=== PATIENT | female | born 1980 | race Caucasian/White ===

== ENCOUNTER 2017-03-19 10:45 | Emergency (ER) | payer SELFPAY ==
[~2017-03-19] VITALS: Ht 170.2 cm; Wt 163.0 kg
[~2017-03-19 10:45] MED LIST: PROZ20CA11 PO; TRAZ100 PO
[2017-03-19 10:51] VITALS: BP 152/98; PULSE 100; RESP 15; TEMP 97.6; O2SAT 97
[2017-03-19 11:38] LABS: BLOOD, URINE TRACE (NEG); GLUCOSE,URINE 1000 OR GREATER mg/dL (NEG); KETONE, URINE NEG (NEG); NITRITE,URINE NEG (NEG); PH, URINE 5.5 (5.0-8.5)
[2017-03-19 11:43] LABS: BACTERIA, URINE FEW /hpf; COMMENT (UR) CULTURE INDICATED; CULTURE IF INDICATED CULTURE INDICATED; METHOD OF COLLECTION CLEAN CATCH; SQUAMOUS EPITHELIAL CELL URINE > 8 /hpf (0-5); URINE COLOR YELLOW (YELLW/STRAW); WBC, URINE 15-19 /hpf (0-5)
--- NOTE | 2017-03-19 11:45 | PD ---
HPI Chief Complaint: Complaint Time Seen by Provider: 11:28 Travel History International Travel<30 days: No Contact w/Intl Traveler<30days: No Traveled to known affect area: No History of Present Illness HPI Patient is a 37-year-old female who is a type II diabetic, presents to emergency room with complaints of urinary urgency, frequency and dysuria for the past 3 days. Patient reports that she is concerned that she may have a UTI as she has frequent UTIs. Patient reports the symptoms are similar to her previous when she was diagnosed with UTIs. Patient denies any vaginal discharge or bleeding this time. Patient denies any abdominal pain, denies any nausea vomiting or diarrhea. PFSH Past Medical History Anxiety: Yes Depression: Yes Cardiovascular Problems: Yes (WPW) Diabetes: Yes Patient Takes Glucophage: Yes ?: Not : 0 Social History Alcohol Use: No Tobacco Use: No Substance Use: No Allergies-Medications (Allergen,Severity, Reaction): Coded Allergies: No Known Allergies (Unverified , 03/19/17) Reported Meds & Prescriptions Reported Meds & Active Scripts Active No Active Prescriptions or Reported Medications Review of Systems General / Constitutional: No: Fever Eyes: No: Visual changes HENT: No: Headaches Cardiovascular: No: Chest Pain or Discomfort Respiratory: No: Shortness of Breath Gastrointestinal: No: Abdominal Pain Genitourinary: Positive: Urgency, Frequency, Dysuria Musculoskeletal: No: Pain Skin: No Rash Neurologic: No: Weakness Psychiatric: No: Depression Endocrine: No: Polydipsia Hematologic/Lymphatic: No: Easy Bruising Physical Exam Narrative GENERAL: Well-nourished, well-developed patient. SKIN: Focused skin assessment warm/dry. HEAD: Normocephalic. EYES: No scleral icterus. No injection or drainage. NECK: Supple, trachea midline. No JVD or lymphadenopathy. CARDIOVASCULAR: Regular rate and rhythm without murmurs, gallops, or rubs. RESPIRATORY: Breath sounds equal bilaterally. No accessory muscle use. GASTROINTESTINAL: Abdomen soft, non-tender, nondistended. MUSCULOSKELETAL: No cyanosis, or edema. BACK: Nontender without obvious deformity. No CVA tenderness. Data Data Last Documented VS Vital Signs Date Time Temp Pulse Resp B/P (MAP) Pulse Ox O2 Delivery O2 Flow Rate FiO2 03/19/17 10:51 97.6 100 15 152/98 (116) 97 Orders Orders Urinalysis - C+S If Indicated (03/19/17 11:28) Ed Urine Pregnancytest Poc (03/19/17 11:28) Urine Culture (03/19/17 11:35) Lidocaine 1% Inj (50 Ml) (Xylocaine 1% I (03/19/17 12:00) Ceftriaxone Inj (Rocephin Inj) (03/19/17 12:00) Labs Laboratory Tests Test 03/19/17 11:35 Urine Collection Type CLEAN CATCH Urine Color YELLOW Urine Turbidity CLEAR Urine pH 5.5 Urine Specific [place] 1.033 Urine Protein NEG mg/dL Urine Glucose (UA) 1000 OR GREATER mg/dL Urine Ketones NEG mg/dL Urine Occult Blood TRACE Urine Nitrite NEG Urine Bilirubin NEG Urine Leukocyte Esterase NEG Urine RBC 4-9 /hpf Urine WBC 15-19 /hpf Urine Squamous Epithelial Cells > 8 /hpf Urine Bacteria FEW /hpf Microscopic Urinalysis Comment CULTURE INDICATED Urine Collection Time 11:35 [facility] Medical Decision Making Medical Screen Exam Complete: Yes Emergency Medical Condition: Yes Medical Record Reviewed: Yes Interpretation(s) Vital Signs Date Time Temp Pulse Resp B/P (MAP) Pulse Ox O2 Delivery O2 Flow Rate FiO2 03/19/17 10:51 97.6 100 15 152/98 (116) 97 Differential Diagnosis UTI Narrative Course 37-year-old female who presents to emergency room for evaluation of possible UTI. Patient has been having urinary urgency, frequency and urgency for the past 3 days Patient denies any vaginal discharge or bleeding this time. UA as well as urine ordered. Laboratory Tests Test 03/19/17 11:35 Urine Collection Type CLEAN CATCH Urine Color YELLOW (YELLW/STRAW) Urine Turbidity CLEAR (CLEAR) Urine pH 5.5 (5.0-8.5) Urine Specific [place] 1.033 (1.002-1.035) Urine Protein NEG mg/dL (NEG-TRACE) Urine Glucose (UA) 1000 OR GREATER mg/dL Urine Ketones NEG mg/dL (NEG) Urine Occult Blood TRACE (NEG) Urine Nitrite NEG (NEG) Urine Bilirubin NEG (NEG) Urine Leukocyte Esterase NEG (NEG) Urine RBC 4-9 /hpf (0-3) Urine WBC 15-19 /hpf (0-5) Urine Squamous Epithelial Cells > 8 /hpf (0-5) Urine Bacteria FEW /hpf (NONE) Microscopic Urinalysis Comment CULTURE INDICATED Urine Collection Time 11:35 Patient was given 1 g of Rocephin IM. She will follow up with urine cultures from today. She will return to emergency room as needed Diagnosis Primary Impression: UTI (urinary tract infection) Qualified Codes: N30.01 - Acute cystitis with hematuria Additional Impression: Glucosuria Patient Instructions: General Instructions Additional Instructions: Please follow-up with all cultures from today Please take all antibiotics as prescribed Please monitor your blood sugar carefully Return to the emergency room if symptoms worsen or progress Return to the emergency room as needed. Please follow-up with your primary care doctor Med/Other Pt SpecificInfo: Prescription(s) given Scripts Nitrofurantoin Monohydrate Macrocrystals (Macrobid) 100 Mg Cap 100 MG PO BID for Infection for 10 Days, #20 CAP 0 Refills Prov: Blanca Collazo DO 03/19/17 Disposition: 01 DISCHARGE HOME Condition: Stable Blanca Collazo DO Mar 19, 2017 11:45
[2017-03-19] MEDS ORDERED: LIDOCAINE HCL 1% 50 ML VIAL IM ONE (12:00)
[2017-03-19] MEDS ORDERED: MACR100C2 PO (12:10)
== END 2017-03-19 12:54 | disposition home or self-care (01) ==
LOC: PHED 10:45
DX: N30.01 Acute cystitis with hematuria (principal); R81 Glycosuria; E11.9 Type 2 diabetes mellitus without complications; I45.6 Pre-excitation syndrome; Z79.84 Long term (current) use of oral hypoglycemic drugs
CPT/HCPCS: 81001; 84703; 87086; 96372; 99284; J0696

== ENCOUNTER 2017-04-23 08:56 | Emergency (ER) | payer SELFPAY ==
[~2017-04-23] VITALS: Ht 170.2 cm; Wt 165.0 kg
[~2017-04-23 08:56] MED LIST changes: +MACR100C2 PO; -PROZ20CA11 PO; -TRAZ100 PO
[2017-04-23 09:10] VITALS: BP 222/102; PULSE 90; RESP 16; TEMP 97.9; O2SAT 97
[2017-04-23 09:23] LABS: BLOOD, URINE SMALL (NEG); GLUCOSE,URINE 1000 OR GREATER mg/dL (NEG); KETONE, URINE TRACE mg/dL (NEG); NITRITE,URINE NEG (NEG); PH, URINE 5.5 (5.0-8.5)
[2017-04-23 09:35] LABS: METHOD OF COLLECTION CLEAN CATCH; URINE COLOR YELLOW (YELLW/STRAW)
[2017-04-23 09:36] LABS: BACTERIA, URINE OCC /hpf; RBC, URINE 15-19 /hpf (0-3); RENAL EPITHELIAL CELLS 0-5 /hpf; SQUAMOUS EPITHELIAL CELL URINE > 8 /hpf (0-5); WBC, URINE 100-200 /hpf (0-5)
[2017-04-23 09:37] LABS: COMMENT (UR) CULTURE INDICATED; CULTURE IF INDICATED CULTURE INDICATED
--- NOTE | 2017-04-23 09:37 | PD ---
HPI Chief Complaint: Complaint Time Seen by Provider: 09:27 Travel History International Travel<30 days: No Contact w/Intl Traveler<30days: No Traveled to known affect area: No History of Present Illness HPI The patient is a 37-year-old female who presents to the emergency department for dysuria, frequency, and urgency. The patient has a history of type 2 diabetes and was on metformin extended release 500 mg twice a day, she states she was unable to take metformin regular form secondary to an allergic reaction. However, the patient ran out of her insurance, is scheduled to have new insurance in May with a new physician and will be able to take her metformin at that time. The patient's blood sugars have been running 200-300. She does note increased dysuria and frequency with urgency, has a history of recurrent urinary tract infections in the past with similar symptoms. She denies any nausea, vomiting, or abdominal pain. She denies any vaginal discharge. Symptoms are mild to moderate, possibly exacerbated by elevated blood glucose level and recurrent UTIs. PFSH Past Medical History Anxiety: Yes Depression: Yes Cardiovascular Problems: Yes (WPW) Diabetes: Yes ?: Not LMP: SEPT/IRREG : 0 Social History Alcohol Use: No Tobacco Use: No Substance Use: No Allergies-Medications (Allergen,Severity, Reaction): Coded Allergies: No Known Allergies (Unverified Adverse Reaction, Unknown, 04/23/17) Reported Meds & Prescriptions Reported Meds & Active Scripts Active Macrobid (Nitrofurantoin Monoh/Nitrofur Macro) 100 Mg Cap 100 Mg PO BID 10 Days Review of Systems Except as stated in HPI: all other systems reviewed are Neg General / Constitutional: No: Fever HENT: No: Lightheadedness Gastrointestinal: No: Nausea, Vomiting, Diarrhea, Abdominal Pain Genitourinary: Positive: Urgency, Frequency, Dysuria Physical Exam Narrative GENERAL: Awake, alert, pleasant 37-year-old female who appears her stated age and is in no acute respiratory distress. SKIN: Focused skin assessment warm/dry. HEAD: Atraumatic. Normocephalic. EYES: No injection or drainage. ENT: No nasal bleeding or discharge. Mucous membranes pink and moist. NECK: Trachea midline. No JVD. GASTROINTESTINAL: Abdomen soft, obese, no rebound tenderness. Back: Mild bilateral CVA tenderness. MUSCULOSKELETAL: No obvious deformities. No clubbing. No cyanosis. No edema. NEUROLOGICAL: Awake and alert. No obvious cranial nerve deficits. Motor grossly within normal limits. Normal speech. PSYCHIATRIC: Appropriate mood and affect; insight and judgment normal. Data Data Last Documented VS Vital Signs Date Time Temp Pulse Resp B/P (MAP) Pulse Ox O2 Delivery O2 Flow Rate FiO2 04/23/17 09:10 97.9 90 16 222/102 (142) 97 Orders Orders Urinalysis - C+S If Indicated (04/23/17 09:14) Ed Urine Pregnancytest Poc (04/23/17 09:14) Urine Culture (04/23/17 09:15) Labs Laboratory Tests Test 04/23/17 09:15 Urine Collection Type CLEAN CATCH Urine Color YELLOW Urine Turbidity SLIGHT Urine pH 5.5 Urine Specific [place] 1.030 Urine Protein NEG mg/dL Urine Glucose (UA) 1000 OR GREATER mg/dL Urine Ketones TRACE mg/dL Urine Occult Blood SMALL Urine Nitrite NEG Urine Bilirubin NEG Urine Leukocyte Esterase SMALL Urine RBC 15-19 /hpf Urine WBC 100-200 /hpf Urine WBC Clumps MANY Urine Squamous Epithelial Cells > 8 /hpf Urine Renal Epithelial Cells 0-5 /hpf Urine Bacteria OCC /hpf Urine Trichomonas FEW Microscopic Urinalysis Comment CULTURE INDICATED Urine Collection Time 09:15 [facility] Medical Decision Making Medical Screen Exam Complete: Yes Emergency Medical Condition: Yes Medical Record Reviewed: Yes Interpretation(s) Laboratory Tests Test 04/23/17 09:15 Urine Collection Type CLEAN CATCH Urine Color YELLOW Urine Turbidity SLIGHT Urine pH 5.5 Urine Specific [place] 1.030 Urine Protein NEG mg/dL Urine Glucose (UA) 1000 OR GREATER mg/dL Urine Ketones TRACE mg/dL Urine Occult Blood SMALL Urine Nitrite NEG Urine Bilirubin NEG Urine Leukocyte Esterase SMALL Urine RBC 15-19 /hpf Urine WBC 100-200 /hpf Urine WBC Clumps MANY Urine Squamous Epithelial Cells > 8 /hpf Urine Renal Epithelial Cells 0-5 /hpf Urine Bacteria OCC /hpf Urine Trichomonas FEW Microscopic Urinalysis Comment CULTURE INDICATED Urine Collection Time 09:15 Differential Diagnosis Differential diagnosis includes UTI, yeast infection, hyperglycemia, noncompliance, DKA. Narrative Course I had a discussion with the patient regarding laboratory evaluation for her creatinine, glucose, and IV fluids for hyperglycemia and change in her prescription and metformin from the extended release as he extended release is expensive. However, the patient states that she is allergic to the regular metformin. Therefore, no initial laboratory evaluation was performed except UA. UA is positive for UTI. The patient states Cipro does not work, Macrobid was too expensive, she states Bactrim does work. Therefore, patient will be treated with Bactrim twice a day for 7 days. She is advised to return if symptoms worsen or progress. Diagnosis Primary Impression: UTI (urinary tract infection) Qualified Codes: N30.00 - Acute cystitis without hematuria Patient Instructions: General Instructions Additional Instructions: Medications as directed. Follow-up with your primary physician. Return if symptoms worsen or progress. Med/Other Pt SpecificInfo: Prescription(s) given Scripts Sulfamethoxazole-Trimethoprim (Bactrim DS) 800-160 Mg Tab 1 TAB PO BID for Infection, #14 TAB 0 Refills Prov: Stewart Sales MD 04/23/17 Disposition: 01 DISCHARGE HOME Condition: Stable Stewart Sales MD Apr 23, 2017 09:37
[2017-04-23] MEDS ORDERED: BACT800T5 PO (09:51)
[2017-04-23 09:55] VITALS: BP 191/104; PULSE 90; RESP 16; O2SAT 96
== END 2017-04-23 10:03 | disposition home or self-care (01) ==
LOC: PHED 08:56
DX: N30.00 Acute cystitis without hematuria (principal); B96.89 Other specified bacterial agents as the cause of diseases classified elsewhere; E11.9 Type 2 diabetes mellitus without complications
CPT/HCPCS: 81001; 84703; 87086; 99283